=== PATIENT | female | born 2005 | race Caucasian/White ===

== ENCOUNTER 2024-08-02 19:58 | Outpatient (REF) | payer BC, SELFPAY | END 2024-08-02 19:59 | disposition home or self-care (01) | LOC: HO.MRI 19:58 | PROVIDERS: Visit Provider Family Medicine | DX: M54.50 Low back pain, unspecified (principal) | CPT/HCPCS: 72148 ==

== ENCOUNTER → 2024-08-02 20:11 | Outpatient (BNV) | payer BC, SELFPAY | PROVIDERS: Visit Provider Radiology Diagnostic Radiology | DX: M54.50 Low back pain, unspecified (principal) | CPT/HCPCS: 72148 ==